=== PATIENT | female | born 1945 | race Caucasian/White ===

== ENCOUNTER 2020-01-15 12:48 | Outpatient (REF) | payer MEDICARE, OTHER, SELFPAY ==
--- NOTE | 2020-01-15 13:00 | MM_ITS ---
EXAMINATION: BONE DENSITOMETRY CLINICAL INDICATION: Osteopenia. COMPARISON: Previous BD dated 12/30/2016 and baseline BD dated 04/24/2006. TECHNIQUE: Using a EGT DXA System (software version: 13.1) manufactured by [employer], dual-energy x-ray absorptiometry was performed of the lumbar spine and left hip. The images are of good technical quality. Summary results are attached. FINDINGS: AP SPINE L1-L4: Current: BMD 1.036 g/cm2, Z-score 0.2, T-score -1.2, osteopenia, 0.2% increase from previous, 2.4% increase from baseline (<5% change is not significant). Prior: BMD 1.034 g/cm2. Baseline: BMD 1.012 g/cm2. LEFT FEMUR, NECK: Current: BMD 0.770 g/cm2, Z-score -0.3, T-score -1.9, osteopenia. Prior: BMD 0.721 g/cm2. Baseline: BMD 0.781 g/cm2. LEFT FEMUR, TOTAL: Current: BMD 0.770 g/cm2, Z-score -0.5, T-score -1.9, osteopenia, 2.3% decrease from previous, 1.8% decrease from baseline (<5% change is not significant). Prior: BMD 0.788 g/cm2. Baseline: BMD 0.784 g/cm2. IDENTIFIED RISK FACTORS: Height loss. Menopause. Thiazide. HISTORY OF FRACTURE: Hip. MEDICATIONS: Calcium supplement or multivitamin. Vitamin D. ERT/SERMS. MM/XR DEXA vertrebral fracture IMPRESSION: 1. DIAGNOSIS: Osteopenia based on the lowest T-score value of -1.9 in the femoral neck and total femur applying World Health Organization criteria. 2. 10-YEAR FRACTURE RISK PREDICTION, FRAX: Major osteoporotic fracture (clinical spine, forearm, hip or shoulder) 19.1%. Hip fracture 4.0%. 3. Treatment Recommendations: NOF guidelines recommend consideration for treatment in postmenopausal women and men age 50 and older presenting with the following: -A hip or vertebral (clinical or morphometric) fracture. -T-score less than or equal to -2.5 at the femoral neck or spine after appropriate evaluation to exclude secondary causes. -Low bone mass at the hip or spine and a 10-year fracture probability by FRAX of greater than or equal to 3% for hip fracture or greater than or equal to 20% for major osteoporotic fracture based on the [place] adapted WHO algorithm. 4. Other Recommendations: All treatment decisions require clinical judgment and consideration of individual patient factors, including patient preferences, comorbidities, previous drug use, risk factors not captured in the FRAX model (e.g. frailty, falls, vitamin D deficiency, increased bone turnover, interval significant decline in bone density) and possible under or overestimation of fracture risk by FRAX. Additional medical evaluation for secondary cause of low bone mineral density may be appropriate. FUTURE SCAN RECOMMENDATION: People with diagnosed cases of osteoporosis or at high risk for fracture should have regular bone mineral density tests. For patients eligible for Medicare, routine testing is allowed once every 2 years. The testing frequency can be increased to one year for patients who have rapidly progressing disease, those who are receiving or discontinuing medical therapy to restore bone mass, or have additional risk factors.
--- NOTE | 2020-01-15 13:00 | MM_ITS ---
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 Due for yearly. COMPARISON: Mammography: 01/10/2019, 01/08/2018, 02/01/2017, 01/20/2017, 12/30/2016 TECHNIQUE: Digital breast tomosynthesis is performed in both the craniocaudal and mediolateral oblique views along with computer-aided detection (CAD). Synthesized 2D images are generated from the tomosynthesis. Additional magnification right CC and magnification right ML x2 views are obtained. FINDINGS: The breasts are heterogeneously dense, which may obscure small masses (ACR BI-RADS breast composition Category c). Post therapy changes right breast are similar to prior postoperative exams with reduced breast size and scarring upper outer quadrant. The left breast again shows regional calcifications upper outer quadrant. Neither breast shows interval mass or architectural abnormality or abnormal calcifications. No significant changes from prior study. Results are provided to the patient at time of visit by the technologist. IMPRESSION: There are no significant changes from prior study. ASSESSMENT: BI-RADS 2: Benign RECOMMENDATION: Annual bilateral mammography. This patient's information was entered into a reminder system with a target due date for their next mammogram.
== END 2020-01-15 12:49 | disposition home or self-care (01) ==
LOC: HO.MAMMO 12:48
PROVIDERS: PCP Nurse Practitioner Family; Visit Provider Surgery
DX: Z85.3 Personal history of malignant neoplasm of breast (principal); M85.89 Other specified disorders of bone density and structure, multiple sites; Z78.0 Asymptomatic menopausal state
CPT/HCPCS: 77062; 77066; 77086

== ENCOUNTER → 2020-01-21 10:19 | Outpatient (BNV) | payer MEDICARE, OTHER, SELFPAY | PROVIDERS: PCP Nurse Practitioner Family; Visit Provider Internal Medicine Medical Oncology | DX: Z85.3 Personal history of malignant neoplasm of breast (principal) | CPT/HCPCS: 99213; 99214 ==

== ENCOUNTER → 2020-03-19 10:58 | Outpatient (BNVA) | payer MEDICARE, OTHER, SELFPAY | PROVIDERS: PCP Nurse Practitioner Family; Visit Provider Surgery | DX: C50.911 Malignant neoplasm of unspecified site of right female breast (principal) | CPT/HCPCS: 99212 ==

== ENCOUNTER → 2020-10-02 09:55 | Outpatient (BNVA) | payer MEDICARE, OTHER, SELFPAY | PROVIDERS: PCP Nurse Practitioner Family; Visit Provider Surgery | DX: C50.911 Malignant neoplasm of unspecified site of right female breast (principal) | CPT/HCPCS: 99212 ==

== ENCOUNTER 2021-01-18 09:32 | Outpatient (REF) | payer MEDICARE, OTHER, SELFPAY ==
--- NOTE | ~2021-01-18 | MM_ITS ---
EXAMINATION: MM SCREENING DIGITAL BREAST TOMOSYNTHESIS, BILATERAL CLINICAL INFORMATION: Due for yearly. 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 COMPARISON: Mammography: 01/15/2020, 01/10/2019, 01/08/2018, 02/01/2017, 12/30/2016 TECHNIQUE: Digital breast tomosynthesis is performed in both the craniocaudal and mediolateral oblique views along with computer-aided detection (CAD). Synthesized 2D images are generated from the tomosynthesis. Additional bilateral MLO views are provided. FINDINGS: The breasts are heterogeneously dense, which may obscure small masses (ACR BI-RADS breast composition Category c). Parenchymal pattern is similar to prior studies. There is no interval mass or architectural abnormality or developing density. Again, there are post therapy changes on the right with reduced breast size and stable scarring and mild smooth skin thickening. There are scattered calcifications in the breasts. No abnormal calcifications. The axilla are unremarkable. MM/MM tomosynthesis screening BI IMPRESSION: No significant changes from prior exams. Post therapy changes right breast, stable. ASSESSMENT: BI-RADS 2: Benign RECOMMENDATION: Routine annual mammography screening. This patient's information was entered into a reminder system with a target due date for their next mammogram.
== END 2021-01-18 09:33 | disposition home or self-care (01) ==
LOC: HO.MAMMO 09:32
PROVIDERS: Visit Provider Nurse Practitioner Family
DX: Z12.31 Encounter for screening mammogram for malignant neoplasm of breast (principal)
CPT/HCPCS: 77063; 77067

== ENCOUNTER → 2021-05-13 13:03 | Outpatient (BNVA) | payer MEDICARE, OTHER, SELFPAY | PROVIDERS: PCP Nurse Practitioner Family; Visit Provider Surgery | DX: C50.911 Malignant neoplasm of unspecified site of right female breast (principal) | CPT/HCPCS: 99212 ==

== ENCOUNTER → 2021-11-04 13:41 | Outpatient (BNVA) | payer MEDICARE, OTHER, SELFPAY | PROVIDERS: PCP Nurse Practitioner Family; Visit Provider Surgery | DX: C50.411 Malignant neoplasm of upper-outer quadrant of right female breast (principal); Z17.0 Estrogen receptor positive status [ER+]; Z92.21 Personal history of antineoplastic chemotherapy; Z79.810 Long term (current) use of selective estrogen receptor modulators (SERMs); Z92.3 Personal history of irradiation | CPT/HCPCS: 99212 ==

== ENCOUNTER 2022-01-24 09:55 | Outpatient (REF) | payer MEDICARE, OTHER, SELFPAY ==
--- NOTE | ~2022-01-24 | MM_ITS ---
EXAMINATION: MM SCREENING DIGITAL BREAST TOMOSYNTHESIS, BILATERAL CLINICAL INFORMATION: Right breast ILC with focal ductal features status post lumpectomy 02/01/2017. Due for yearly. COMPARISON: Mammography: 01/18/2021, 01/15/2020, 01/10/2019, 01/08/2018 TECHNIQUE: Digital breast tomosynthesis is performed in both the craniocaudal and mediolateral oblique views along with computer-aided detection (CAD). Synthesized 2D images are generated from the tomosynthesis. FINDINGS: The breasts are heterogeneously dense, which may obscure small masses (ACR BI-RADS breast composition Category c). Post therapy changes right breast are again noted with mild reduced breast size and stable scarring posterior upper outer quadrant. Neither breast shows interval mass or architectural abnormality or developing density. No abnormal calcifications. There are scattered regional calcifications central and upper outer left breast and lesser scattered calcifications again seen on the right. No significant changes from prior exams. MM/MM tomosynthesis screening BI IMPRESSION: -No significant changes from prior studies. -Post therapy changes right breast. ASSESSMENT: BI-RADS 2: Benign RECOMMENDATION: Routine annual mammography screening. This patient's information was entered into a reminder system with a target due date for their next mammogram.
== END 2022-01-24 09:56 | disposition home or self-care (01) ==
LOC: HO.MAMMO 09:55
PROVIDERS: Visit Provider Nurse Practitioner Family
DX: Z12.31 Encounter for screening mammogram for malignant neoplasm of breast (principal)
CPT/HCPCS: 77063; 77067

== ENCOUNTER → 2022-05-10 10:31 | Outpatient (BNVA) | payer MEDICARE, OTHER, SELFPAY | PROVIDERS: PCP Nurse Practitioner Family; Visit Provider Surgery | DX: Z85.3 Personal history of malignant neoplasm of breast (principal); Z92.21 Personal history of antineoplastic chemotherapy; Z92.3 Personal history of irradiation | CPT/HCPCS: 99212 ==

== ENCOUNTER 2022-06-01 08:05 | Outpatient (REF) | payer MEDICARE, OTHER, SELFPAY ==
--- NOTE | ~2022-06-01 | MM_ITS ---
EXAMINATION: BONE DENSITOMETRY CLINICAL INDICATION: Osteopenia. Breast cancer, on tamoxifen. COMPARISON: Previous BD dated 01/15/2020 and baseline BD dated 04/24/2006. TECHNIQUE: Using a [employer] DXA System (software version: 13.1) manufactured by [employer], dual-energy x-ray absorptiometry was performed of the lumbar spine and left hip. The images are of good technical quality. Summary results are attached. FINDINGS: AP SPINE L1-L4: Current: BMD 1.044 g/cm2, Z-score 0.3, T-score -1.1, osteopenia, 0.8% increase from previous, 3.2% increase from baseline (<5% change is not significant). Prior: BMD 1.036 g/cm2. Baseline: BMD 1.012 g/cm2. LEFT FEMUR, NECK: Current: BMD 0.701 g/cm2, Z-score -0.7, T-score -2.4, osteopenia. Prior: BMD 0.770 g/cm2. Baseline: BMD 0.781 g/cm2. LEFT FEMUR, TOTAL: Current: BMD 0.701 g/cm2, Z-score -0.9, T-score -2.4, osteopenia, 9.0% decrease from previous, 10.6% decrease from baseline (<5% change is not significant). Prior: BMD 0.770 g/cm2. Baseline: BMD 0.784 g/cm2. IDENTIFIED RISK FACTORS: History of adult fracture. Height loss. Thiazide. Menopause. HISTORY OF FRACTURE: Femur/hip. MEDICATIONS: Calcium supplement and/or multivitamin. Vitamin D. ERT/SERMS. MM/XR DEXA axial skeleton IMPRESSION: 1. DIAGNOSIS: Osteopenia based on the lowest T-score value of -2.4 in the femoral neck and total femur applying World Health Organization criteria. 2. 10-YEAR FRACTURE RISK PREDICTION, FRAX: Not performed in this patient on estrogen or bone building treatments. 3. Treatment Recommendations: NOF guidelines recommend consideration for treatment in postmenopausal women and men age 50 and older presenting with the following: -A hip or vertebral (clinical or morphometric) fracture. -T-score less than or equal to -2.5 at the femoral neck or spine after appropriate evaluation to exclude secondary causes. -Low bone mass at the hip or spine and a 10-year fracture probability by FRAX of greater than or equal to 3% for hip fracture or greater than or equal to 20% for major osteoporotic fracture based on the [place] adapted WHO algorithm. 4. Other Recommendations: All treatment decisions require clinical judgment and consideration of individual patient factors, including patient preferences, comorbidities, previous drug use, risk factors not captured in the FRAX model (e.g. frailty, falls, vitamin D deficiency, increased bone turnover, interval significant decline in bone density) and possible under or overestimation of fracture risk by FRAX. Additional medical evaluation for secondary cause of low bone mineral density may be appropriate. FUTURE SCAN RECOMMENDATION: People with diagnosed cases of osteoporosis or at high risk for fracture should have regular bone mineral density tests. For patients eligible for Medicare, routine testing is allowed once every 2 years. The testing frequency can be increased to one year for patients who have rapidly progressing disease, those who are receiving or discontinuing medical therapy to restore bone mass, or have additional risk factors.
== END 2022-06-01 08:06 | disposition home or self-care (01) ==
LOC: HO.MAMMO 08:05
PROVIDERS: PCP Nurse Practitioner Family; Visit Provider Nurse Practitioner Family
DX: Z13.820 Encounter for screening for osteoporosis (principal); M85.80 Other specified disorders of bone density and structure, unspecified site; Z78.0 Asymptomatic menopausal state
CPT/HCPCS: 77080

== ENCOUNTER 2023-01-26 09:52 | Outpatient (REF) | payer MEDICARE, OTHER, SELFPAY ==
--- NOTE | ~2023-01-26 | MM_ITS ---
EXAMINATION: MM SCREENING DIGITAL BREAST TOMOSYNTHESIS, BILATERAL CLINICAL INFORMATION: Screening. Asymptomatic. The patient is status post treatment for invasive lobular cancer of the right breast diagnosed in January 2017. COMPARISON: Mammography: This study is compared with prior exams dating back to 2018. TECHNIQUE: Digital breast tomosynthesis is performed in both the craniocaudal and mediolateral oblique views along with computer-aided detection (CAD). Synthesized 2D images are generated from the tomosynthesis. FINDINGS: There are scattered areas of fibroglandular density (ACR BI-RADS breast composition Category b). There are postsurgical changes in the upper outer quadrant of the right breast. There are few calcifications in the region of the patient's upper right upper outer outer quadrant cancer scar. These should be further evaluated with magnification imaging in the CC and lateral projections as well as a full lateral view of the right breast. In the left breast, there are no significant masses, abnormal calcifications, or other abnormalities. Unchanged, scattered, benign calcifications are present in the left breast. MM/MM tomosynthesis screening BI IMPRESSION: Few calcifications in the region of the right upper outer quadrant treatment bed warrant further mammographic evaluation with magnification imaging as described above. Benign findings left breast. ASSESSMENT: BI-RADS BI-RADS 0 - Incomplete: Needs additional Imaging. RECOMMENDATION: Additional views of the right breast Radiology department staff will contact the patient for additional imaging. Additional Imaging required This examination should not preclude the clinical evaluation of a suspicious palpable abnormality. This patient's information was entered into a reminder system with a target due date for their next mammogram.
== END 2023-01-26 09:53 | disposition home or self-care (01) ==
LOC: HO.MAMMO 09:52
PROVIDERS: PCP Nurse Practitioner Family; Visit Provider Nurse Practitioner Family
DX: Z12.31 Encounter for screening mammogram for malignant neoplasm of breast (principal)
CPT/HCPCS: 77063; 77067

== ENCOUNTER → 2023-01-26 10:15 | Outpatient (BNV) | payer MEDICARE, OTHER, SELFPAY | PROVIDERS: PCP Nurse Practitioner Family; Visit Provider Radiology Diagnostic Radiology | DX: Z12.31 Encounter for screening mammogram for malignant neoplasm of breast (principal) | CPT/HCPCS: 77063; 77067 ==

== ENCOUNTER 2023-02-09 11:19 | Outpatient (REF) | payer MEDICARE, OTHER, SELFPAY ==
--- NOTE | ~2023-02-09 | MM_ITS ---
EXAMINATION: MM DIAGNOSTIC DIGITAL BREAST TOMOSYNTHESIS, RIGHT CLINICAL INFORMATION: Follow-up right breast lumpectomy site for calcifications previously seen.The patient is status post treatment for invasive lobular cancer of the right breast diagnosed in January 2017. COMPARISON: Mammography: 01/26/2023, 01/24/2022, 01/18/2021, 01/15/2020. TECHNIQUE: Digital breast tomosynthesis is performed. The following views are obtained: 2-D right mag CC, and 2-D right mag ML views. FINDINGS: The breasts are heterogeneously dense, which may obscure small masses (ACR BI-RADS breast composition Category c). Additional views demonstrate calcifications predominantly posterolateral and a few anterior to the lumpectomy site. These have punctate overall morphology, without suspicious forms or tight grouping. These are probably dystrophic. Given the findings, six-month interval follow-up magnification views recommended to ensure stability. No additional suspicious findings seen. MM/MM tomosynthesis added views R IMPRESSION: Probably benign calcifications abutting the lumpectomy site predominantly posterior lateral, lateral, with a few scattered in the anterior region. There appears to been little change since magnification views taken 12/26/2019. Recommend six-month interval follow-up diagnostic mammography to include standard magnification views, with attention given to the regions mentioned. I would include X CCL magnification views. Alternatively, MRI assessment of the right breast could be considered. ASSESSMENT: BI-RADS BI-RADS 3 - Probably benign finding(s) - 6 month follow-up suggested RECOMMENDATION: 6 Month F/U Results were provided to the patient at time of visit by the technologist. This patient's information was entered into a reminder system with a target due date for their next mammogram.
== END 2023-02-09 11:20 | disposition home or self-care (01) ==
LOC: HO.MAMMO 11:19
PROVIDERS: PCP Nurse Practitioner Family; Visit Provider Nurse Practitioner Family
DX: R92.1 Mammographic calcification found on diagnostic imaging of breast (principal)
CPT/HCPCS: 77061; 77062; 77065

== ENCOUNTER → 2023-02-09 11:30 | Outpatient (BNV) | payer MEDICARE, OTHER, SELFPAY | PROVIDERS: PCP Nurse Practitioner Family; Visit Provider Radiology Diagnostic Radiology | DX: R92.1 Mammographic calcification found on diagnostic imaging of breast (principal) | CPT/HCPCS: 77061; 77065; G0279 ==

== ENCOUNTER 2023-05-18 09:42 | Outpatient (AMB) | payer MEDICARE, OTHER, SELFPAY ==
--- NOTE | 2023-05-18 09:47 | A.OFFVIS_ITS ---
Intake Vital Signs 3 05/18/23 09:55 Height 5 ft 7 in Weight 170 lb BMI 26.6 BP 140/68 H Blood Pressure Location Lt brachial Position Sitting Pulse 99 Intake Visit Reasons: yearly breast exam Intake Note: Patient is seen in office for yearly breast exam. 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: Hat Lining Blocker Present Accompanied by: Self / Same As Patient Allergies sulfamethoxazole [From Bactrim] Allergy (Mild, Verified 05/18/23 09:54) HIVES trimethoprim [From Bactrim] Allergy (Mild, Verified 05/18/23 09:54) HIVES Sulfa (Sulfonamide Antibiotics) Allergy (Unknown, Verified 05/18/23 09:54) hives Medication List - Last Reconciled 05/18/23 by Kentrell Garduno MD calcium 100 mg PO DAILY calcium phos,dibas-vitamin D3 77-400 mg-unit 1 tab PO DAILY cranberry 500 mg PO BID hydrochlorothiazide 25 mg PO DAILY lisinopril 5 mg PO DAILY magnesium 250 mg PO DAILY multivitamin 1 tab PO DAILY HPI HPI Comments 2 History of Present Illness0 Details 78-year-old female patient, 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 She was diagnosed with an infiltrating lobular carcinoma and subsequently underwent a right breast lumpectomy with needle localization and right axillary sentinel node biopsy on 02/01/2017 pathology revealed invasive lobular carcinoma with focal ductal features, 2.1 cm in greatest dimension, negative margins after reexcision, ER/ TX positive, HER2 Lm negative,? 0/3 sentinel nodes with metastatic disease.? Oncotype DX recurrence score 25 indicating the 16% chance of tumor recurrence at 10 years with tamoxifen alone.? She subsequently underwent adjuvant chemotherapy with AC x4 cycles followed by radiation therapy performed at [facility] completed on 06/26/2017.? She was started on tamoxifen by Dr. Quintanilla in July 2017. Was treated with tamoxifen for 5.5 years and is now off the medication. Her last mammogram performed on 02/09/2023 revealed probable benign calcifications at the excision site right breast which was probably present in 2019. Finding was felt to be low suspicion and six-month follow-up mammogram recommended (scheduled for 08/02/2023). BI-RADS 3. She denies any ongoing symptoms in either breast. [facility] Medical History HTN (hypertension) Surgical History History of lumpectomy of right breast History of hip surgery Family History Paternal Grandmother Breast cancer Father Heart problem Maternal Aunt Uterine cancer Maternal Aunt Breast cancer Social History Household Members: Spouse Housing: House Are you a primary respiratory care technician to a significant other at home: No Do you presently have visiting nurse or other home services: No Alcohol intake: current Alcohol intake frequency: a few times a month Alcohol type: wine Patient Tobacco Use Status: Never used Tobacco service: No Current occupational status: retired Female Reproductive History Menstrual Age of Menarche: 14 Review of Systems Const All systems reviewed & are unremarkable except as noted in HPI and below Card Denies chest pain, Denies rapid heart rate, Denies irregular heart rhythm and Denies dyspnea Resp Denies chest congestion, Denies cough, Denies hemoptysis and Denies dyspnea Denies nipple discharge Skin/Breast Denies breast swelling, Denies breast skin changes, Denies breast pain, Denies breast mass, Denies change in breast shape and Denies nipple discharge Dejan/Lymph Denies lymphadenopathy Physical Exam Vital Signs: Last Vital Signs Pulse 99 05/18/23 09:55 BP 140/68 H 05/18/23 09:55 BMI result Body Mass Index 26.6 Const General: comfortable, no acute distress and well developed Nutritional Appearance: well nourished Orientation/consciousness: patient oriented x3 Limitations: no limitations Neck Neck: Yes normal visual inspection, Yes full ROM and Yes no lymphadenopathy Chest Other: Right breast: Transverse incision in the upper outer quadrant and right axilla with no underlying mass appreciated. Breast tissue is very dense following radiation therapy. Skin irritation noted in the inframammary crease the right side. No other skin changes, nipple discharge, palpable mass, or lymphadenopathy is appreciated. Left breast: No skin change, nipple discharge, nipple retraction, palpable mass, or enlarged lymph node. Chest/axillae images: 2 1. Resp Effort & Inspection: normal respiratory effort, no audible wheezes and no cough Neuro General: patient oriented x3 Assessment & Plan Assessment & Plan (1) Infiltrating lobular carcinoma of right breast in female: Comment: She continues to do well with regard to her history of right breast carcinoma. Code(s): C50.911 - Malignant neoplasm of unspecified site of right female breast Plan: 78-year-old female patient with history of right breast infiltrating lobular carcinoma diagnosis in 2017, status post right breast lumpectomy with needle localization, right axillary sentinel node biopsy on 02/01/2017. She subsequently underwent adjuvant chemotherapy x4 cycles of AC followed by radiation therapy. She returns today for follow-up breast examination. Examination today reveals no suspicious findings in either breast with no evidence of recurrence disease. Her most recent mammogram revealed low suspicion calcifications around the biopsy site (BI-RADS 3). Six-month follow- up mammogram is scheduled. She will return in 1 year for routine breast examination. Coding Level of Care Code Est Pt Level 3 (48876) Diagnoses Infiltrating lobular carcinoma of right breast in female C50.911
[2023-05-18 09:55] VITALS: BP 140/68; PULSE 99; BMI 26.6
== END 2023-05-18 10:07 | disposition home or self-care (01) ==
PROVIDERS: PCP Nurse Practitioner Family; Visit Provider Surgery
DX: C50.911 Malignant neoplasm of unspecified site of right female breast (principal)
CPT/HCPCS: 99213

== ENCOUNTER → 2023-05-18 09:42 | Outpatient (BNVA) | payer MEDICARE, OTHER, SELFPAY | PROVIDERS: PCP Nurse Practitioner Family; Visit Provider Surgery | DX: Z85.3 Personal history of malignant neoplasm of breast (principal); Z92.21 Personal history of antineoplastic chemotherapy; Z92.3 Personal history of irradiation | CPT/HCPCS: 99212 ==

== ENCOUNTER 2023-08-02 11:12 | Outpatient (REF) | payer MEDICARE, OTHER, SELFPAY ==
--- NOTE | ~2023-08-02 | MM_ITS ---
EXAMINATION: MM DIAGNOSTIC DIGITAL BREAST TOMOSYNTHESIS, RIGHT CLINICAL INFORMATION: Follow-up right breast lumpectomy site for calcifications previously seen.The patient is status post treatment for invasive lobular cancer of the right breast diagnosed in January 2017. COMPARISON: Mammography: 02/09/2023, 01/26/2023, 01/24/2022, 01/18/2021, 01/15/2020. TECHNIQUE: Digital breast tomosynthesis is performed. The following views are obtained: Full-field 3-D right CC and right MLO views, as well as spot magnification views of the lumpectomy site in the exaggerated lateral CC view and mediolateral view. FINDINGS: There are scattered areas of fibroglandular density (ACR BI-RADS breast composition Category b). Additional views demonstrate calcifications predominantly posterolateral and a few anterior to the lumpectomy site. These have punctate round overall morphology, without suspicious forms or tight grouping. There has been no change. No new calcifications. These are probably dystrophic. Given the findings, six-month interval follow-up magnification views recommended to ensure stability, when the patient is due for bilateral screening. No additional suspicious findings seen. Lumpectomy scar in the upper outer right breast is stable. MM/MM diagnostic mammo unilat RT IMPRESSION: Probably benign calcifications abutting the right breast lumpectomy site predominantly posterior lateral, lateral, with a few scattered in the anterior region. There appears to been no significant change since magnification views taken 02/09/2023, and 12/26/2019. These have a dystrophic appearance. Recommend six-month interval follow-up diagnostic mammography to include standard magnification views, when the patient is due for bilateral screening. ASSESSMENT: BI-RADS BI-RADS 3 - Probably benign finding(s) - 6 month follow-up suggested RECOMMENDATION: 6 Month F/U Results were provided to the patient at time of visit by the technologist. This patient's information was entered into a reminder system with a target due date for their next mammogram.
== END 2023-08-02 11:13 | disposition home or self-care (01) ==
LOC: HO.MAMMO 11:12
PROVIDERS: PCP Registered Nurse; Visit Provider Surgery
DX: Z85.3 Personal history of malignant neoplasm of breast (principal)
CPT/HCPCS: 77062; 77065

== ENCOUNTER 2024-02-06 10:53 | Outpatient (REF) | payer MEDICARE, OTHER, SELFPAY ==
--- NOTE | ~2024-02-06 | MM_ITS ---
EXAMINATION: MM DIAGNOSTIC DIGITAL BREAST TOMOSYNTHESIS, BILATERAL CLINICAL INFORMATION: Diagnostic exam; six-month follow-up for probably benign calcifications in the right lumpectomy site. Patient also due for yearly . COMPARISON: Mammography: 02/02/2024, 02/09/2023, 01/26/2023 TECHNIQUE: Digital breast tomosynthesis is performed in both the craniocaudal and mediolateral oblique views along with computer-aided detection (CAD). Synthesized 2D images are generated from the tomosynthesis. In addition to standard views, 2-D spot magnification right CC x2, and right ML x1 views were obtained. FINDINGS: There are scattered areas of fibroglandular density (ACR BI-RADS breast composition Category b). Additional views demonstrate stable calcifications predominantly posterolateral and a few anterior to the lumpectomy site. These again have round punctate overall morphology, without suspicious forms or tight grouping. There has been no aggressive change or new calcifications. These are consistent with probably benign dystrophic calcifications. Otherwise, there are benign calcifications scattered in both breasts, left greater than right. Postlumpectomy scarring is present upper outer right breast with therapeutic changes, similar to the prior examination. There is no evidence of disease recurrence. There is postlumpectomy scarring in the upper outer left breast as well from benign excisional biopsy. Otherwise, there are no suspicious masses, developing suspicious grouped calcifications, or areas of architectural distortion in either breast. The parenchymal pattern is stable from prior exams. No axillary abnormalities. MM/MM tomosynthesis diagnostic BI IMPRESSION: -There are no findings suspicious for malignancy in either breast. -Benign therapeutic changes right breast. Benign post excisional biopsy changes upper outer left breast. -Probably benign calcifications abutting the lumpectomy site on the right remains stable without aggressive changes. One-year follow-up diagnostic magnification views right breast recommended to establish a 2 year stability. ASSESSMENT: BI-RADS BI-RADS 3 - Probably benign finding(s) - 12 month follow-up suggested RECOMMENDATION: 12 month diagnostic follow up Results were provided to the patient at time of visit by the technologist. This patient's information was entered into a reminder system with a target due date for their next mammogram. Electronically signed by: Tahir Ryan MD 02/06/2024 12:03 PM [facility]
== END 2024-02-06 10:54 | disposition home or self-care (01) ==
LOC: HO.MAMMO 10:53
PROVIDERS: PCP Registered Nurse; Visit Provider Surgery
DX: Z85.3 Personal history of malignant neoplasm of breast (principal)
CPT/HCPCS: 77062; 77066

== ENCOUNTER → 2024-02-06 11:00 | Outpatient (BNV) | payer MEDICARE, OTHER, SELFPAY | PROVIDERS: PCP Registered Nurse; Visit Provider Radiology Diagnostic Radiology | DX: R92.1 Mammographic calcification found on diagnostic imaging of breast (principal) | CPT/HCPCS: 77066; G0279 ==

== ENCOUNTER 2024-05-21 09:34 | Outpatient (AMB) | payer MEDICARE, OTHER, SELFPAY ==
--- NOTE | 2024-05-21 09:35 | A.OFFVIS_ITS ---
Vital Signs 3 05/21/24 09:41 Height 5 ft 6 in Weight 170 lb BMI 27.4 BP 162/77 H Blood Pressure Location Lt brachial Position Sitting Pulse 97 Intake Visit Reasons: yearly breast exam Intake Note: Patient is seen in office for yearly breast exam. 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 Quinteros returning for a follow-up breast examination.? She was diagnosed with an infiltrating lobular carcinoma and subsequently underwent a right breast lumpectomy with needle localization and right axillary sentinel node biopsy on 02/01/2017 pathology revealed invasive lobular carcinoma with focal ductal features, 2.1 cm in greatest dimension, negative margins after reexcision, ER/ OK positive, HER2 Lm negative,? 0/3 sentinel nodes with metastatic disease.? Oncotype DX recurrence score 25 indicating the 16% chance of tumor recurrence at 10 years with tamoxifen alone.? She subsequently underwent adjuvant chemotherapy with AC x4 cycles followed by radiation therapy performed at [facility], completed on 06/26/2017.? She was started on tamoxifen by Dr. Quintanilla in July 2017. Was treated with tamoxifen for 5.5 years and is now off the medication. Her last mammogram performed on 02/09/2023 revealed probable benign calcifications at the excision site right breast which was probably present in 2019. Finding was felt to be low suspicion and six-month follow-up mammogram recommended (scheduled for 08/02/2023). BI-RADS 3. She denies any ongoing symptoms in either breast. [facility] Medical History HTN (hypertension) Surgical History History of lumpectomy of right breast History of hip surgery Family History Paternal Grandmother Breast cancer Father Heart problem Maternal Aunt Uterine cancer Maternal Aunt Breast cancer Social History Household Members: Spouse Housing: House Are you a primary hospice spiritual care coordinator to a significant other at home: No Do you presently have visiting nurse or other home services: No Alcohol intake: current Alcohol intake frequency: a few times a month Alcohol type: wine Patient Tobacco Use Status: Never used Tobacco service: No Current occupational status: retired Female Reproductive History Menstrual Age of Menarche: 14 Review of Systems Const All systems reviewed & are unremarkable except as noted in HPI and below Card Denies chest pain, Denies rapid heart rate, Denies irregular heart rhythm and Denies dyspnea Resp Denies chest congestion, Denies cough, Denies hemoptysis and Denies dyspnea Denies nipple discharge Skin/Breast Denies breast swelling, Denies breast skin changes, Denies breast pain, Denies breast mass, Denies change in breast shape and Denies nipple discharge Dejan/Lymph Denies lymphadenopathy Physical Exam Vital Signs: Last Vital Signs Pulse 97 05/21/24 09:41 BP 162/77 H 05/21/24 09:41 BMI result Body Mass Index 27.4 Const General: comfortable, no acute distress and well developed Nutritional Appearance: well nourished Orientation/consciousness: patient oriented x3 Limitations: no limitations Neck Neck: Yes normal visual inspection, Yes full ROM and Yes no lymphadenopathy Chest Other: Right breast: Transverse incision in the upper outer quadrant and right axilla with no underlying mass appreciated. Breast tissue is very dense following radiation therapy. Skin irritation noted in the inframammary crease the right side. No other skin changes, nipple discharge, palpable mass, or lymphadenopathy is appreciated. Left breast: No skin change, nipple discharge, nipple retraction, palpable mass, or enlarged lymph node. Chest/axillae images: 2 1. Resp Effort & Inspection: normal respiratory effort, no audible wheezes and no cough Neuro Other: Mobility Assessment: 1. 3 meter assessment time (seconds) 5 2. Gait observations: Normal balance and gait General: patient oriented x3 Assessment & Plan Assessment & Plan (1) Infiltrating lobular carcinoma of right breast in female: Comment: She continues to do well with regard to her history of right breast carcinoma. Code(s): C50.911 - Malignant neoplasm of unspecified site of right female breast Category: Medical Plan: 79-year-old female patient with history of right breast infiltrating lobular carcinoma diagnosis in 2017, status post right breast lumpectomy with needle localization, right axillary sentinel node biopsy on 02/01/2017. She subsequently underwent adjuvant chemotherapy x4 cycles of AC followed by radiation therapy. She returns today for follow-up breast examination. Examination today reveals no suspicious findings in either breast with no evidence of recurrence disease. Her most recent mammogram of 11/02/2023 revealed low suspicion calcifications around the biopsy site (BI-RADS 3). One year follow-up diagnostic mammogram is scheduled for 11/07/2024. Coding Level of Care Code Est Pt Level 3 (70019) Diagnoses Infiltrating lobular carcinoma of right breast in female C50.911
[2024-05-21 09:41] VITALS: BP 162/77; PULSE 97; BMI 27.4
== END 2024-05-21 09:52 | disposition home or self-care (01) ==
PROVIDERS: PCP Nurse Practitioner Family; Visit Provider Surgery
DX: C50.911 Malignant neoplasm of unspecified site of right female breast (principal)
CPT/HCPCS: 99213

== ENCOUNTER → 2024-05-21 09:34 | Outpatient (BNVA) | payer MEDICARE, OTHER, SELFPAY | PROVIDERS: PCP Nurse Practitioner Family; Visit Provider Surgery | DX: C50.911 Malignant neoplasm of unspecified site of right female breast (principal) | CPT/HCPCS: 99212 ==

== ENCOUNTER 2024-08-16 10:18 | Outpatient (REF) | payer MEDICARE, OTHER, SELFPAY ==
--- NOTE | ~2024-08-16 | MM_ITS ---
EXAMINATION: DXA BONE DENSITY AXIAL HISTORY: Z78.0 TECHNIQUE: COTA Dual energy absorptiometry (DEXA) of the lumbar spine, total left hip, and femoral neck was performed. COMPARISON: Comparison is made with the prior examination dated 06/01/2022. FINDINGS: The bone mineral density of the lumbar spine is 0.937, corresponding to a T-score of -1.9, and a Z-score of -0.5. This is indicative of osteopenia. This represents a BMD change of -6.1% compared to the prior exam. This is statistically significant. The bone mineral density of the left total hip is 0.709, corresponding to a T-score of -2.4, and a Z-score of -0.8. This is indicative of osteopenia. This represents a BMD change of 1.1% compared to the prior exam. This is not statistically significant. The bone mineral density of the left femoral neck is 0.726, corresponding to a T-score of -2.2, and a Z-score of -0.5. This is indicative of osteopenia. This represents a BMD change of 3.6% compared to the prior exam. FRACTURE RISK: The FRAX index suggests a ten year probability of major osteoporotic fracture of 34.4%, and of hip fracture 11.6%. MM/XR DEXA axial skeleton IMPRESSION: Based on bone mineral density, and according to World Health Organization (WHO) criteria, the diagnosis is consistent with osteopenia. All bone density values are in grams per centimeter squared (g/cm2). Statistically, 68% of repeat scans fall within 1 SD (+/- 0.010 g/cm2 for AP spine L1-L4) and 1 SD (+/- 0.012 g/cm2 for femur total) FRAX is a trademark of the [employer]'s [place] [facility] [employer], a World Health Organization (WHO) Collaborating Center. Electronically signed by: Jun Mark MD 08/16/2024 10:56 AM EDT
== END 2024-08-16 10:19 | disposition home or self-care (01) ==
LOC: HO.MAMMO 10:18
PROVIDERS: PCP Physician Assistant Surgical; Visit Provider Physician Assistant Surgical
DX: Z13.820 Encounter for screening for osteoporosis (principal); Z78.0 Asymptomatic menopausal state
CPT/HCPCS: 77080

== ENCOUNTER → 2024-08-16 10:30 | Outpatient (BNV) | payer MEDICARE, OTHER, SELFPAY | PROVIDERS: PCP Physician Assistant Surgical; Visit Provider Radiology Diagnostic Radiology | DX: E28.39 Other primary ovarian failure (principal) | CPT/HCPCS: 77080 ==

== ENCOUNTER 2025-02-10 12:34 | Outpatient (REF) | payer MEDICARE, OTHER, SELFPAY ==
--- NOTE | ~2025-02-10 | MM_ITS ---
EXAMINATION(S): MM DIAGNOSTIC DIGITAL BREAST TOMOSYNTHESIS, BILATERAL CLINICAL INFORMATION: Personal history of right breast lumpectomy for invasive lobular cancer in January 2017. This is a one year follow-up for calcifications in the treatment bed of the right breast upper outer quadrant. These calcifications were first described in January 2023. COMPARISON: Comparison made to multiple prior, most recent February 06, 2024, and most remote January 15, 2020. TECHNIQUE: Digital breast tomosynthesis is performed in both the mediolateral oblique and craniocaudal views along with computer-aided detection (CAD). Synthesized 2D images are generated from the tomosynthesis. Magnified spot compression views of the right breast calcifications were obtained. FINDINGS: BREAST COMPOSITION: There are scattered areas of fibroglandular density. RIGHT BREAST: Post lumpectomy changes. Previously described calcifications at the lumpectomy site are not significantly change from prior spot magnified compression views from January 2023; they can now be considered a benign finding and no dedicated imaging follow-up needed. No significant masses, suspicious calcifications or other abnormalities are seen. LEFT BREAST: No significant masses, suspicious calcifications or other abnormalities are seen. MM/MM tomosynthesis diagnostic BI IMPRESSION: RIGHT BREAST: Benign, no mammographic evidence of malignancy. Patient may return to routine screening mammogram in 12 months. LEFT BREAST: Benign, no mammographic evidence of malignancy. Normal interval follow-up is recommended in 12 months. ASSESSMENT: BI-RADS: Category 2: Benign RECOMMENDATION: 1 year F/U Results were provided to the patient at time of visit by the technologist. This patient's information was entered into a reminder system with a target due date for their next mammogram. Electronically signed by: David Ramos MD 02/10/2025 01:59 PM [facility] [place]
== END 2025-02-10 12:35 | disposition home or self-care (01) ==
LOC: HO.MAMMO 12:34
PROVIDERS: PCP Physician Assistant Surgical; Visit Provider Surgery
DX: Z85.3 Personal history of malignant neoplasm of breast (principal)
CPT/HCPCS: 77062; 77066

== ENCOUNTER → 2025-02-10 12:37 | Outpatient (BNV) | payer MEDICARE, OTHER, SELFPAY | PROVIDERS: PCP Physician Assistant Surgical; Visit Provider Radiology Body Imaging | DX: Z85.3 Personal history of malignant neoplasm of breast (principal); R92.1 Mammographic calcification found on diagnostic imaging of breast | CPT/HCPCS: 77066; G0279 ==